=== PATIENT | female | born 1965 | race Caucasian/White ===

== ENCOUNTER 2018-09-10 18:01 | Inpatient (IN) | payer MEDICAID ==
[~2018-09-10] VITALS: Ht 152.4 cm; Wt 73.6 kg
[2018-09-10] MEDS ORDERED: KETOROLAC 60MG/2ML VIAL IM ONE (18:30)
[2018-09-10] MEDS ORDERED: MORPHINE SULFATE 10 MG/ML CPJ IM ONE (18:30)
[2018-09-10] MEDS ORDERED: MORPHINE SULFATE 4 MG/ML CPJ (NOT FOR IM USE) IV PRN (21:15)
[2018-09-10 22:04] LABS: BASOPHILS % 0.1 % (0.0-2.0); HEMATOCRIT. 43.6 % (36.0-48.0); HEMOGLOBIN. 14.3 g/dL (12.0-16.0); LYMPHOCYTES % 10.3 % (20.0-50.0); MEAN CORPUSCULAR HEMOGLOBIN 29.7 pg (28.0-32.0); MEAN CORPUSCULAR VOLUME 90.4 fL (81.0-99.0); MEAN PLATELET VOLUME 8.7 fl (7.4-10.4); MONOCYTES % 4.5 % (2.0-8.0); NEUTROPHILS % 85.1 % (40.0-76.0); PLATELET 217 x1000/uL (130-400); RED BLOOD CELL COUNT 4.82 mill/uL (4.2-5.4); RED CELL DISTRIBUTION WIDTH 13.5 % (11.6-14.6)
[2018-09-10 22:09] LABS: CHLORIDE 107 mEq/L (98-107)
[2018-09-10 22:11] LABS: INR 1.1; PROTHROMBIN TIME 10.6 sec (9.1-11.1)
[2018-09-10 22:32] LABS: PLATELET ESTIMATE NORMAL
[2018-09-10 23:55] VITALS: BP 111/66
[2018-09-11] MEDS ORDERED: IOHEXOL-300 100 ML BOTTLE ONE (00:26)
[2018-09-11] MEDS ORDERED: MAGNESIUM/ALUMINUM HYDROXIDE/SIMETHICONE 30ML UDC PO PRN (01:00)
[2018-09-11] MEDS ORDERED: DIPHENHYDRAMINE 50MG/ML VIAL IV PRN (01:00)
[2018-09-11] MEDS ORDERED: IPRATROPIUM/ALBUTEROL 0.5-3(2.5)MG/3ML NEB INH PRN (01:00)
[2018-09-11] MEDS ORDERED: HYDROCODONE/ACETAMINOPHEN 10/325MG TABLET PO PRN (01:00)
[2018-09-11] MEDS ORDERED: CLONIDINE 0.1MG TABLET PO PRN (01:00)
[2018-09-11] MEDS ORDERED: ACETAMINOPHEN 650MG/20.3ML UDC GT PRN (01:00)
[2018-09-11] MEDS ORDERED: ACETAMINOPHEN 650MG SUPP PR PRN (01:00)
[2018-09-11] MEDS ORDERED: NA PHOS,M-B/NA PHOS,DI-BA ENEMA 118ML PR PRN (01:00)
[2018-09-11] MEDS ORDERED: ACETAMINOPHEN 325MG TABLET PO PRN (01:00)
[2018-09-11] MEDS ORDERED: HYDROCODONE/ACETAMINOPHEN 5/325MG TABLET PO PRN (01:00)
[2018-09-11] MEDS ORDERED: ONDANSETRON HCL 4MG/2ML INJ IV PRN (01:00)
[2018-09-11] MEDS: MORPHINE SULFATE 10MG/5ML ORAL SOLN UDC PO PRN ×4 (01:20→22:01)
[2018-09-11 04:00] VITALS: BP 111/62
[2018-09-11 08:00] VITALS: BP 92/56
[2018-09-11] MEDS ORDERED: ENOXAPARIN 40MG/0.4ML SYR SUBCUT SCH (09:00)
[2018-09-11 12:00] VITALS: BP 99/56
[2018-09-11] MEDS: SODIUM CHLORIDE 0.9% INJ 3ML FLUSH IVF SCH ×2 (14:49→22:02)
[2018-09-11 16:00] VITALS: BP 102/61
[2018-09-11] MEDS: DEXAMETHASONE 4MG/ML 1ML VIAL IV SCH ×2 (17:50→23:35)
[2018-09-11 19:20] LABS: BASOPHILS % 0.1 % (0.0-2.0); EOSINOPHILS % 0.2 % (0.0-5.0); HEMOGLOBIN. 13.8 g/dL (12.0-16.0); LYMPHOCYTES % 16.2 % (20.0-50.0); MEAN CORPUSCULAR HEMOGLOBIN 29.8 pg (28.0-32.0); MEAN CORPUSCULAR VOLUME 88.6 fL (81.0-99.0); MEAN PLATELET VOLUME 8.4 fl (7.4-10.4); MONOCYTES % 2.9 % (2.0-8.0); NEUTROPHILS % 80.6 % (40.0-76.0); PLATELET 262 x1000/uL (130-400); RED BLOOD CELL COUNT 4.63 mill/uL (4.2-5.4); RED CELL DISTRIBUTION WIDTH 13.3 % (11.6-14.6)
[2018-09-11 19:24] LABS: CHLORIDE 104 mEq/L (98-107)
[2018-09-11 19:26] LABS: PROTHROMBIN TIME 10.5 sec (9.1-11.1)
[2018-09-11 20:00] VITALS: BP 111/65
[2018-09-11] MEDS ORDERED: BISACODYL 5MG TABLET PO PRN (20:00)
[2018-09-12] VITALS (29 sets, daily range): BP systolic 91–155; BP diastolic 31–139
[2018-09-12] MEDS: DEXAMETHASONE 4MG/ML 1ML VIAL IV SCH ×4 (05:20→23:04)
[2018-09-12] MEDS: SODIUM CHLORIDE 0.9% INJ 3ML FLUSH IVF SCH ×3 (05:24→22:08)
[2018-09-12] MEDS ORDERED: THROMBIN (BOVINE) 5000 UNITS/VIAL TOP ONE (06:32)
[2018-09-12] MEDS ORDERED: GELATIN SPONGE,ABSORBABLE 12-7MM SPONGE ONE ×2 (06:32→08:46)
[2018-09-12] MEDS ORDERED: BACITRACIN 50,000 UNITS/VIAL ONE (06:32)
[2018-09-12] MEDS ORDERED: LIDOCAINE HCL/EPINEPHRINE 1%-EPI 1:100,000 20 ML VIAL ONE (06:32)
[2018-09-12] MEDS ORDERED: NORMAL SALINE 0.9% 10 ML SYR ONE (06:32)
[2018-09-12] MEDS ORDERED: FENTANYL CITRATE/PF 50MCG/ML 2ML VIAL ONE ×2 (07:08→08:27)
[2018-09-12] MEDS ORDERED: ROCURONIUM BROMIDE 10MG/ML VIAL 5ML IV ONE (07:08)
[2018-09-12] MEDS ORDERED: PROPOFOL 200MG/20ML VIAL IV ONE (07:08)
[2018-09-12] MEDS ORDERED: NEOSTIGMINE METHYLSULFATE 1MG/ML 10 ML VIAL ONE (07:08)
[2018-09-12] MEDS ORDERED: GLYCOPYRROLATE 0.2 MG/ML 2ML VIAL ONE ×2 (07:09→09:50)
[2018-09-12] MEDS ORDERED: MIDAZOLAM HCL 2 MG/2 ML VIAL ONE (07:09)
[2018-09-12] MEDS ORDERED: DEXAMETHASONE 4MG/ML 1ML VIAL ONE (07:14)
[2018-09-12] MEDS ORDERED: ONDANSETRON HCL 4MG/2ML INJ ONE (07:41)
[2018-09-12] MEDS ORDERED: HYDROMORPHONE HCL/PF 2MG/ML (OR) ONE (07:41)
[2018-09-12] MEDS ORDERED: MEPERIDINE HCL/PF 25MG/ML CPJ IV PRN (09:00)
[2018-09-12] MEDS ORDERED: LABETALOL HCL 20MG/4ML CARPUJECT IV PRN (09:00)
[2018-09-12] MEDS ORDERED: ONDANSETRON HCL 4MG/2ML INJ IV PRN (09:00)
[2018-09-12] MEDS ORDERED: NICARDIPINE 100 MG in SODIUM CHLORIDE 0.9% 60 ML IV PRN (09:45)
[2018-09-12] MEDS ORDERED: NALOXONE HCL 0.4 MG/ML 1ML VIAL ONE (09:56)
[2018-09-12] MEDS ORDERED: CEFAZOLIN SODIUM 1000MG/VIAL ONE (09:57)
[2018-09-12] MEDS ORDERED: SODIUM CHLORIDE 0.9% 10ML VIAL ONE (09:57)
[2018-09-12] MEDS ORDERED: LIDOCAINE HCL/PF 1% 10 MG/ML 5ML VIAL ONE (09:57)
[2018-09-12] MEDS ORDERED: NITROPRUSSIDE 50 MG in SODIUM CHLORIDE 0.9% 248 ML IV PRN (10:15)
[2018-09-12] MEDS: HYDROMORPHONE HCL/PF 2MG/ML CPJ IV PRN ×2 (10:21→12:13)
[2018-09-12] MEDS: DEXT 5%/LACTATED RINGERS 1,000 ML IV SCH ×2 (10:40→22:08)
[2018-09-12] MEDS ORDERED: NALOXONE INJ IV PRN (10:45)
[2018-09-12] MEDS ORDERED: DIPHENHYDRAMINE INJ IV PRN (10:45)
[2018-09-12] MEDS ORDERED: ONDANSETRON INJ IV PRN (10:45)
[2018-09-12] MEDS ORDERED: HYDROMORPHONE PCA 10MG/50ML IV PRN (11:00)
[2018-09-12 12:47] LABS: HEMATOCRIT. 36.8 % (36.0-48.0); HEMOGLOBIN. 12.4 g/dL (12.0-16.0); MEAN CORPUSCULAR VOLUME 89.2 fL (81.0-99.0); PLATELET 226 x1000/uL (130-400); RED BLOOD CELL COUNT 4.13 mill/uL (4.2-5.4); RED CELL DISTRIBUTION WIDTH 13.4 % (11.6-14.6)
[2018-09-12 13:14] LABS: CHLORIDE 109 mEq/L (98-107)
[2018-09-12 13:24] LABS: LDL CHOLESTEROL 156 mg/dL (5-100)
[2018-09-12 13:25] LABS: HDL CHOLESTEROL 55 mg/dL (40-59)
[2018-09-12 13:56] LABS: PLATELET ESTIMATE NORMAL
[2018-09-12] MEDS ORDERED: CEFAZOLIN SODIUM 1000MG/VIAL IV SCH (14:00)
[2018-09-12] MEDS: CEFAZOLIN 1000MG PREMIX 50 ML IV SCH (17:03)
[2018-09-13] VITALS (46 sets, daily range): BP systolic 78–162; BP diastolic 36–91
[2018-09-13] MEDS: CEFAZOLIN 1000MG PREMIX 50 ML IV SCH ×3 (01:14→17:57)
[2018-09-13] MEDS: DEXAMETHASONE 4MG/ML 1ML VIAL IV SCH ×3 (05:21→17:57)
[2018-09-13] MEDS: SODIUM CHLORIDE 0.9% INJ 3ML FLUSH IVF SCH (05:22)
[2018-09-13] MEDS: DOCUSATE SODIUM 100MG CAPSULE PO PRN ×2 (05:30→14:38)
[2018-09-13] MEDS: DEXT 5%/LACTATED RINGERS 1,000 ML IV SCH ×2 (05:31→17:57)
[2018-09-13 05:41] LABS: LYMPHOCYTES % 7.8 % (20.0-50.0); MEAN CORPUSCULAR HEMOGLOBIN 29.7 pg (28.0-32.0); MEAN CORPUSCULAR VOLUME 89.1 fL (81.0-99.0); MEAN PLATELET VOLUME 8.8 fl (7.4-10.4); MONOCYTES % 4.5 % (2.0-8.0); NEUTROPHILS % 87.7 % (40.0-76.0); PLATELET 232 x1000/uL (130-400); RED CELL DISTRIBUTION WIDTH 13.1 % (11.6-14.6)
[2018-09-13 05:43] LABS: CHLORIDE 107 mEq/L (98-107)
[2018-09-13] MEDS: DOCUSATE SODIUM 100MG CAPSULE PO SCH (12:12)
[2018-09-13] MEDS ORDERED: HYDROCODONE/APAP 7.5/325MG 1 TAB TABLET PO PRN (15:15)
[2018-09-13] MEDS ORDERED: SODIUM CHLORIDE 0.9% 500 ML IV NR (18:15)
[2018-09-13] MEDS: HYDROMORPHONE HCL/PF 2MG/ML CPJ IV PRN (20:16)
[2018-09-13] MEDS ORDERED: LACTULOSE 20G/30ML UDC PO PRN (21:00)
[2018-09-14] VITALS: BP 109/60
[2018-09-14] MEDS: DEXAMETHASONE 4MG/ML 1ML VIAL IV SCH ×4 (00:45→18:06)
[2018-09-14] MEDS: HYDROMORPHONE HCL/PF 2MG/ML CPJ IV PRN ×4 (00:45→18:07)
[2018-09-14] MEDS: CEFAZOLIN 1000MG PREMIX 50 ML IV SCH ×2 (03:40→11:36)
[2018-09-14 04:00] VITALS: BP 126/79
[2018-09-14] MEDS: DEXT 5%/LACTATED RINGERS 1,000 ML IV SCH ×2 (06:14→18:09)
[2018-09-14 08:00] VITALS: BP 134/81
[2018-09-14] MEDS: DOCUSATE SODIUM 100MG CAPSULE PO SCH (08:38)
[2018-09-14 12:00] VITALS: BP 103/53
[2018-09-14] MEDS: SODIUM CHLORIDE 0.9% INJ 3ML FLUSH IVF SCH ×2 (13:11→22:02)
[2018-09-14 16:00] VITALS: BP 115/69
[2018-09-14 20:00] VITALS: BP_SYST 121; BP_SYST 126; BP_DIAS 69; BP_DIAS 71
[2018-09-15] VITALS: BP 121/69
[2018-09-15] MEDS: DEXAMETHASONE 4MG/ML 1ML VIAL IV SCH ×4 (01:17→18:52)
[2018-09-15 04:00] VITALS: BP 123/73
[2018-09-15] MEDS: SODIUM CHLORIDE 0.9% INJ 3ML FLUSH IVF SCH ×3 (05:03→21:25)
[2018-09-15] MEDS: HYDROMORPHONE HCL/PF 2MG/ML CPJ IV PRN ×2 (06:54→16:02)
[2018-09-15 08:00] VITALS: BP 117/75
[2018-09-15] MEDS: DOCUSATE SODIUM 100MG CAPSULE PO SCH (08:31)
[2018-09-15] MEDS: DEXT 5%/LACTATED RINGERS 1,000 ML IV SCH ×2 (08:31→21:25)
[2018-09-15 12:00] VITALS: BP 126/81
[2018-09-15 16:00] VITALS: BP 116/69
[2018-09-15 20:00] VITALS: BP 112/69
[2018-09-16] VITALS: BP 109/61
[2018-09-16] MEDS: DEXAMETHASONE 4MG/ML 1ML VIAL IV SCH ×3 (01:04→12:20)
[2018-09-16] MEDS: HYDROMORPHONE HCL/PF 2MG/ML CPJ IV PRN (01:05)
[2018-09-16 04:00] VITALS: BP 108/54
[2018-09-16] MEDS: SODIUM CHLORIDE 0.9% INJ 3ML FLUSH IVF SCH ×2 (06:23→12:21)
[2018-09-16] MEDS: DOCUSATE SODIUM 100MG CAPSULE PO SCH (08:30)
[2018-09-16] MEDS: DEXT 5%/LACTATED RINGERS 1,000 ML IV SCH (08:30)
== END 2018-09-16 18:09 | disposition home health service (06) | DRG 304 ==
LOC: ER 18:01 → 6EST 21:14 → ENRESERV 21:41 → 6EST 09-11 → MICUSO 09-12 10:05 → 6EST 09-13 23:10
PROVIDERS: ADMIT Family Medicine; ATTEND Family Medicine
PROC: 0SG0071 Fusion of Lumbar Vertebral Joint with Autologous Tissue Substitute, Posterior Approach, Posterior Column, Open Approach (ICD-10-PCS; 2018-09-12)
PROC: 0QS004Z Reposition Lumbar Vertebra with Internal Fixation Device, Open Approach (ICD-10-PCS; 2018-09-12)
PROC: 0RGA071 Fusion of Thoracolumbar Vertebral Joint with Autologous Tissue Substitute, Posterior Approach, Posterior Column, Open Approach (ICD-10-PCS; principal; 2018-09-12 07:00)
DX: S32.011A Stable burst fracture of first lumbar vertebra, initial encounter for closed fracture (principal); G82.20 Paraplegia, unspecified; K76.0 Fatty (change of) liver, not elsewhere classified; M48.061 Spinal stenosis, lumbar region without neurogenic claudication; D72.829 Elevated white blood cell count, unspecified; J98.11 Atelectasis; M48.56XA Collapsed vertebra, not elsewhere classified, lumbar region, initial encounter for fracture; K59.00 Constipation, unspecified; R16.0 Hepatomegaly, not elsewhere classified; W11.XXXA Fall on and from ladder, initial encounter; Y93.89 Activity, other specified; Y92.89 Other specified places as the place of occurrence of the external cause; Y99.8 Other external cause status
CPT/HCPCS: 36415; 72100; 72148; 73502; 74177; 80048; 80061; 93970; 96372; 97116; 97162; 97166; 97530; 97535; 99285; A4216; J0690; J1100; J1170; J1885; J2250; J2270; J2310; J2405; J2704; J2710; J3010; J3490; J7040; J7121; Q9967

== ENCOUNTER 2024-03-19 09:58 | Emergency (ER) | payer SELFPAY ==
[~2024-03-19] VITALS: Ht 160 cm; Wt 81.0 kg
[2024-03-19 10:07] VITALS: O2SAT 98
[2024-03-19] MEDS: BACITRACIN ZINC OINT UDPKT TOP ONE (10:30)
[2024-03-19] MEDS ORDERED: TETANUS, DIPHTHERIA, PERTUSSIS VAC/PF 0.5ML (>10YR OLD) IM ONE (10:30)
[2024-03-19] MEDS: LIDOCAINE HCL/PF 1% 10 MG/ML 5ML VIAL INFIL ONE (10:30)
[2024-03-19] MEDS: ACETAMINOPHEN 325MG TABLET PO ONE (10:30)
[2024-03-19] MEDS ORDERED: BO1 TP (12:05)
[2024-03-19] MEDS ORDERED: IBUP-2029 MT (12:05)
[2024-03-19] MEDS: TETANUS, DIPHTHERIA, PERTUSSIS VAC/PF 0.5ML (>10YR OLD) IM ONE (12:15)
[2024-03-19 12:34] VITALS: BP 136/72; PULSE 89; RESP 18; TEMP 97.8
== END 2024-03-19 12:40 | disposition home or self-care (01) ==
LOC: ER 09:58
DX: S01.81XA Laceration without foreign body of other part of head, initial encounter (principal); W18.39XA Other fall on same level, initial encounter; Y93.89 Activity, other specified; Y92.89 Other specified places as the place of occurrence of the external cause; Y99.8 Other external cause status
CPT/HCPCS: 99285; 70450; 90715; 12013; 90471; J3490

== ENCOUNTER 2024-03-26 16:44 | Emergency (ER) | payer MEDICAID ==
[~2024-03-26] VITALS: Ht 152.4 cm; Wt 72.0 kg
[~2024-03-26 16:44] MED LIST: BO1 TP; IBUP-2029 MT
[2024-03-26 16:58] VITALS: O2SAT 97
[2024-03-26 17:15] VITALS: BP 139/68; PULSE 76; RESP 18; TEMP 98.2
== END 2024-03-26 17:46 | disposition home or self-care (01) ==
LOC: ER 16:44
DX: S01.81XD Laceration without foreign body of other part of head, subsequent encounter (principal); X58.XXXD Exposure to other specified factors, subsequent encounter
CPT/HCPCS: 99281; Z7610